=== PATIENT | female | born 1995 | race Caucasian/White ===

== ENCOUNTER 2019-09-02 02:43 | Emergency (ER) | payer BC ==
[~2019-09-02] VITALS: Ht 162.6 cm; Wt 62.1 kg
[2019-09-02 02:52] VITALS: BP_SYST 116
[2019-09-02] MEDS ORDERED: NACL 0.9% 1,000 ML IV ONE ×2 (03:07→05:29)
[2019-09-02] MEDS ORDERED: ONDANSETRON HCL 4 MG/2 ML VIAL IVP ONE (03:15)
[2019-09-02] MEDS ORDERED: PANTOPRAZOLE SODIUM 40 MG/VIAL (PROTONIX) IVP ONE (03:15)
[2019-09-02] MEDS ORDERED: MORPHINE 2 MG/ML INJ. SYRINGE IVP ONE (03:15)
[2019-09-02 03:37] LABS: BASOPHILS % (AUTO) 0.1 % (0.0-2.0); EOSINOPHILS % (AUTO) 0.1 % (0.0-4.0); HEMATOCRIT 38.4 % (36-48); HEMOGLOBIN 13.1 g/dL (12.0-16.0); LYMPHOCYTES # (AUTO) 0.9 K/uL (1.0-5.5); LYMPHOCYTES % (AUTO) 5.7 % (20.5-51.5); MEAN CORPUSCULAR HEMOGLOBIN 30 pg (27-31); MEAN CORPUSCULAR HGB CONC 34 % (32-36); MEAN CORPUSCULAR VOLUME 89 fL (79.0-98.0); MONOCYTES # (AUTO) 0.7 K/uL (0.0-1.0); MONOCYTES % (AUTO) 4.3 % (1.7-9.3); NEUTROPHILS # (AUTO) 14.8 K/uL (1.8-7.7); NEUTROPHILS % (AUTO) 89.8 % (40.0-70.0); PLATELET COUNT (AUTO) 303 K/uL (130-430); RED BLOOD CELL COUNT(AUTO) 4.33 MIL/uL (4.2-6.2); RED CELL DISTRIBUTION WIDTH 12.5 % (9.0-15.0); WHITE BLOOD COUNT (AUTO) 16.5 K/uL (4.8-10.8)
[2019-09-02 03:47] LABS: BILIRUBIN,URINE NEGATIVE (NEGATIVE); BLOOD, URINE 2+ (NEGATIVE); CLARITY/URINE CLEAR (CLEAR); COLOR,URINE YELLOW (YELLOW); GLUCOSE,URINE NEGATIVE (NEGATIVE); KETONES,URINE 1+ (NEGATIVE); LEUKOCYTE ESTERASE ,URINE NEGATIVE (NEGATIVE); NITRITE, URINE NEGATIVE (NEGATIVE); PH,URINE 5.5 (5.0-8.0); PROTEIN URINE NEGATIVE (NEGATIVE); UROBILINOGEN,URINE 0.2 (0.2-1.0)
[2019-09-02 03:48] LABS: CREATININE 0.77 mg/dL (0.55-1.30); POTASSIUM 3.5 mmol/L (3.5-5.1)
[2019-09-02 03:53] LABS: BACTERIA,URINE FEW /HPF (None Seen); WBC,URINE 0-3 /HPF (0-3)
[2019-09-02 03:54] LABS: TOTAL BILIRUBIN 0.5 mg/dL (0.0-1.0)
[2019-09-02] MEDS ORDERED: IOHEXOL 100 ML IV ONE (04:42)
[2019-09-02] MEDS ORDERED: PIPERACILLIN/TAZO 3.375 GM in NS 50 ML IV ONE (05:30)
[2019-09-02] MEDS ORDERED: PIPERACILLIN/TAZOBACTAM 3.375 GM/VIAL (ZOSYN) IV ONE (05:57)
[2019-09-02 06:51] VITALS: BP_SYST 114
== END 2019-09-02 06:50 | disposition short-term general hospital (02) ==
LOC: SED 02:43
DX: K35.80 Unspecified acute appendicitis (principal)
CPT/HCPCS: 36415; 74177; 80053; 81000; 83605; 83690; 85025; 87040; 96365; 96375; 99285; C9113; J2270; J2405; J2543; J7030; Q9967

== ENCOUNTER 2020-04-25 01:29 | Emergency (ER) | payer BC ==
[~2020-04-25] VITALS: Ht 162.6 cm; Wt 62.6 kg
[2020-04-25 01:35] VITALS: BP_SYST 134
--- NOTE | 2020-04-25 01:35 | NUR ---
Patient to ER bed 5 to gown for evaluation. Side rails up. Report given to TASHA.
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
--- NOTE | 2020-04-25 02:23 | NUR ---
ER Dr. Anderson at bedside examining patient.
--- NOTE | 2020-04-25 02:36 | NUR ---
Patient transported to radiology via wheelchair, accompanied by staff.
[2020-04-25] MEDS ORDERED: KETOROLAC TROMETHAMINE 60 MG/2 ML VIAL IM ONE (02:45)
--- NOTE | 2020-04-25 02:53 | NUR ---
patient returned from CT.
--- NOTE | 2020-04-25 03:00 | NUR ---
Patient transported to radiology via gurney for xray, accompanied by staff.
--- NOTE | 2020-04-25 03:10 | NUR ---
patient returned from xray.
[2020-04-25 04:39] VITALS: BP_SYST 134
--- NOTE | 2020-04-25 04:41 | NUR ---
Patient given written and verbal discharge instructions and verbalizes understanding. ER MD discussed with patient the results and treatment provided. Patient in stable condition. ID arm band removed. Rx of NAPROSYN AND FLEXERIL given. Patient educated on pain management and to follow up with PMD. Pain Scale 0/10. Opportunity for questions provided and answered. Medication side effect fact sheet provided.
== END 2020-04-25 04:39 | disposition home or self-care (01) ==
LOC: SED 01:29
DX: S13.4XXA Sprain of ligaments of cervical spine, initial encounter (principal); S33.5XXA Sprain of ligaments of lumbar spine, initial encounter; S40.022A Contusion of left upper arm, initial encounter; R51.9 Headache, unspecified; V49.49XA Driver injured in collision with other motor vehicles in traffic accident, initial encounter; Y93.89 Activity, other specified; Y92.413 State road as the place of occurrence of the external cause; Y99.8 Other external cause status
CPT/HCPCS: 70450; 71045; 73030; 73060; 76376; 81002; 81025; 96372; 99284; J1885

== ENCOUNTER 2021-09-23 21:49 | Emergency (ER) | payer BC ==
[~2021-09-23] VITALS: Ht 162.6 cm; Wt 69.4 kg
[2021-09-23 22:16] VITALS: BP_SYST 126
[2021-09-23] MEDS ORDERED: MORPHINE 4 MG INJ. 4 MG/ML VIAL IVP ONE (23:00)
[2021-09-23] MEDS ORDERED: PROCHLORPERAZINE EDISYLATE 10 MG/2 ML VIAL IVP ONE (23:00)
[2021-09-23] MEDS ORDERED: NACL 0.9% 1,000 ML IV ONE (23:00)
[2021-09-23 23:12] LABS: HEMOGLOBIN 12.7 g/dL (12.0-16.0); WHITE BLOOD COUNT (AUTO) 9.7 K/uL (4.8-10.8)
[2021-09-23 23:16] LABS: CALCIUM 9.7 mg/dL (8.4-11.0); CREATININE 0.68 mg/dL (0.55-1.30); POTASSIUM 3.5 mmol/L (3.5-5.1)
[2021-09-23 23:21] LABS: BILIRUBIN,URINE NEGATIVE (NEGATIVE); CLARITY/URINE CLEAR (CLEAR); COLOR,URINE YELLOW (YELLOW); GLUCOSE,URINE NEGATIVE (NEGATIVE); KETONES,URINE NEGATIVE (NEGATIVE); LEUKOCYTE ESTERASE ,URINE NEGATIVE (NEGATIVE); NITRITE, URINE NEGATIVE (NEGATIVE); PH,URINE 7.5 (5.0-8.0); PROTEIN URINE NEGATIVE (NEGATIVE); UROBILINOGEN,URINE 0.2 (0.2-1.0)
[2021-09-23 23:22] LABS: TOTAL BILIRUBIN 0.3 mg/dL (0.0-1.0)
[2021-09-23 23:23] LABS: BLOOD, URINE TRACE (NEGATIVE)
[2021-09-23 23:27] LABS: BASOPHILS % (AUTO) 0.2 % (0.0-2.0); EOSINOPHILS % (AUTO) 0.2 % (0.0-4.0); HEMATOCRIT 37.3 % (36-48); LYMPHOCYTES # (AUTO) 1.2 K/uL (1.0-5.5); LYMPHOCYTES % (AUTO) 12.4 % (20.5-51.5); MEAN CORPUSCULAR HEMOGLOBIN 30 pg (27-31); MEAN CORPUSCULAR HGB CONC 34 % (32-36); MEAN CORPUSCULAR VOLUME 88 fL (79.0-98.0); MONOCYTES # (AUTO) 0.8 K/uL (0.0-1.0); MONOCYTES % (AUTO) 8.4 % (1.7-9.3); NEUTROPHILS # (AUTO) 7.6 K/uL (1.8-7.7); NEUTROPHILS % (AUTO) 78.8 % (40.0-70.0); PLATELET COUNT (AUTO) 298 K/uL (130-430); RED BLOOD CELL COUNT(AUTO) 4.26 MIL/uL (4.2-6.2); RED CELL DISTRIBUTION WIDTH 13.2 % (9.0-15.0)
[2021-09-24] MEDS ORDERED: PANTOPRAZOLE SODIUM 40 MG/VIAL (PROTONIX) IVP ONE (01:00)
[2021-09-24] MEDS ORDERED: ONDA-8 TL (02:14)
[2021-09-24] MEDS ORDERED: HYOS0.1275 PO (02:14)
[2021-09-24] MEDS ORDERED: OMEP-455 PO (02:14)
[2021-09-24] MEDS ORDERED: MAGNESIUM CITRATE 300 ML ORAL SOLUTION PO ONE (02:15)
[2021-09-24 02:43] VITALS: BP_SYST 122
== END 2021-09-24 02:44 | disposition home or self-care (01) ==
LOC: SED 21:49
DX: K29.70 Gastritis, unspecified, without bleeding (principal); K59.00 Constipation, unspecified
CPT/HCPCS: 36415; 74018; 76705; 80053; 81003; 81025; 83690; 85025; 96361; 96374; 96375 ×2; 99285; C9113; J0780; J2270; J7030